=== PATIENT | male | born 1990 | race Caucasian/White ===

== ENCOUNTER 2016-11-30 17:52 | Emergency (ER) | payer SELFPAY ==
[~2016-11-30] VITALS: Ht 162.6 cm; Wt 60.0 kg
[2016-11-30] MEDS ORDERED: TETANUS, DIPHTHERIA, PERTUSSIS VAC/PF 0.5ML (>7YR OLD) IM ONE (19:00)
[2016-11-30] MEDS ORDERED: IBUPROFEN 800MG TABLET PO ONE (19:00)
[2016-11-30 21:10] VITALS: BP 127/79
== END 2016-11-30 21:20 | disposition home or self-care (01) ==
LOC: ER 17:53
DX: S61.211A Laceration without foreign body of left index finger without damage to nail, initial encounter (principal); W26.0XXA Contact with knife, initial encounter; Y93.89 Activity, other specified; Y92.9 Unspecified place or not applicable; Y99.8 Other external cause status
CPT/HCPCS: 12001; 90471; 90715; 99283; A4217; Z7610